=== PATIENT | male | born 1975 | race African-American/Black ===

== ENCOUNTER 2022-09-16 18:29 | Emergency (ER) | payer SELFPAY ==
[2022-09-16 19:04] LABS: ESTIMATED GFR 62 mL/min (>60)
[2022-09-16] MEDS ORDERED: Aspirin 81 MG Tab.Chew PO ONE (19:14)
[2022-09-16] MEDS ORDERED: Heparin Sodium 5,000 Units/ML Vial IVPUSH ONE (19:15)
[2022-09-16] MEDS ORDERED: Heparin Sodium/0.45% NaCl 500 ML IV SCH (19:16)
[2022-09-16] MEDS: Nitroglycerin 0.4 MG Tab.SL SL PRN ×2 (19:18→19:36)
== END 2022-09-16 20:00 ==
LOC: FB.ED 18:29
DX: R07.9 Chest pain, unspecified (principal); E11.22 Type 2 diabetes mellitus with diabetic chronic kidney disease; N18.9 Chronic kidney disease, unspecified
CPT/HCPCS: 36415; 71046; 80048; 84484; 85025; 85379; 93005; 93010; 96374; 99284; 99285-25; A9270-GY; J1644

== ENCOUNTER 2023-04-05 23:32 | Emergency (ER) | payer SELFPAY ==
[2023-04-05] MEDS ORDERED: Cyclobenzaprine 10 MG Tab PO ONE (23:33)
== END 2023-04-06 00:30 | disposition home or self-care (01) ==
LOC: FB.ED 23:32
DX: S29.012A Strain of muscle and tendon of back wall of thorax, initial encounter (principal); S80.02XA Contusion of left knee, initial encounter; E11.9 Type 2 diabetes mellitus without complications; Z72.0 Tobacco use; Y04.0XXA Assault by unarmed brawl or fight, initial encounter
CPT/HCPCS: 99283; A9270

== ENCOUNTER 2024-05-27 10:05 | Emergency (ER) | payer OTHER ==
[2024-05-27] MEDS: Pantoprazole 40 MG Tab.CR PO ONE (10:28)
[2024-05-27 10:41] LABS: BLOOD UREA NITROGEN,BUN 16 mg/dL (7-18); BUN/CREATININE RATIO 12.3 (9-20); CALCIUM 9.6 mg/dL (8.6-10.2); CARBON DIOXIDE,CO2 29 mmol/L (21-32); CHLORIDE,CL 101 mmol/L (100-110); CREATININE 1.3 mg/dL (0.70-1.30); ESTIMATED GFR 67 mL/min (>60); GLUCOSE RANDOM 114 mg/dL (80-116); POTASSIUM,K 4.1 mmol/L (3.5-5.3); SODIUM,NA 138 mmol/L (135-145)
[2024-05-27 10:47] LABS: A/G RATIO 1.2; ALANINE AMINOTRANSFERASE,ALT 16 U/L (12-36); ALBUMIN 4.4 g/dL (3.5-5.2); ALKALINE PHOSPHATASE 62 IU/L (56-112); ASPARTATE AMNIOTRANSFERASE,AST 22 IU/L (5-25); BILIRUBIN TOTAL 0.6 mg/dL (0.1-1.3)
[2024-05-27 10:51] LABS: TROPONIN I 11.4 pg/mL (4.0-60.3)
[2024-05-27 10:55] LABS: C-REACTIVE PROTEIN < 0.50 mg/dL (<0.50)
[2024-05-27 10:56] LABS: BASOPHILS PERCENT AUTO 0.3 % (0.3-3.8); EOSINOPHILS PERCENT AUTO 0.7 % (0.1-6.8); HEMOGLOBIN 13.8 g/dL (12.9-17.7); LYMPHOCYTES ABSOLUTE AUTO 2.3 x10-3/uL (0.5-4.5); LYMPHOCYTES PERCENT AUTO 33.5 % (15.8-45.3); MEAN CORPUSCULAR HEMOGLOBIN 27.1 pg (27.0-33.3); MEAN CORPUSCULAR HGB CONC 32.1 g/dL (28.7-35.3); MEAN CORPUSCULAR VOLUME 84.5 fL (80.8-98.7); MEAN PLATELET VOLUME 8.9 fL (6.7-11.0); MONOCYTES ABSOLUTE AUTO 0.6 x10-3/uL (0.0-1.2); MONOCYTES PERCENT AUTO 9.1 % (5.5-15.2); NEUTROPHILS ABSOLUTE AUTO 3.9 x10-3/uL (1.7-6.9); NEUTROPHILS PERCENT AUTO 56.4 % (40.3-71.8); PLATELET COUNT,PLT 182 x10(3)uL (117-477); RED BLOOD CELL COUNT 5.09 x10(6)uL (3.90-5.90); RED CELL DISTRIBUTION WIDTH 14.9 % (12.4-15.0); WHITE BLOOD CELL COUNT,WBC 6.9 x10-3/uL (3.2-10.1)
[2024-05-28] MEDS ORDERED: Pantoprazole 40 MG Tab.CR PO SCH (06:00)
== END 2024-05-27 11:20 ==
LOC: FB.ED 10:05
DX: R07.89 Other chest pain (principal); K21.9 Gastro-esophageal reflux disease without esophagitis; E11.9 Type 2 diabetes mellitus without complications
CPT/HCPCS: 36415; 80053; 84484; 85025; 86140; 93005; 99285; A9270